=== PATIENT | female | born 1995 | race Hispanic/Latino ===

== ENCOUNTER 2023-06-30 11:33 | Inpatient (IN) | payer MEDICAID, OTHER ==
[2023-06-29 12:58] LABS: Hematocrit 37.1 % (34.9-44.5); Hemoglobin 12.2 g/dL (12.0-15.5); Platelet Count 195 10x3/uL (150-450)
[2023-06-29 13:24] LABS: Syphilis Antibody Nonreactive (Nonreactive); Syphilis Antibody Index 0.03 S/CO (<1.00 Non-Reactive)
[2023-06-29 13:25] LABS: HBSAg Index 0.14 S/CO (0-0.99); Hep B Surf Ag Non-Reactive S/CO (NonReactive)
[2023-06-30 11:55] VITALS: BMI 26.2
[2023-06-30] MEDS: Lactated Ringer's 1,000 ML IV SCH ×2 (12:15→16:00)
[2023-06-30] MEDS ORDERED: Carboprost 250 MCG/ML AMP IM PRN (12:17)
[2023-06-30] MEDS ORDERED: Diphenoxylate HCl/Atropine Tablet PO PRN (12:17)
[2023-06-30] MEDS ORDERED: Promethazine HCl 25 MG/ML VIAL IM PRN ×2 (12:17→15:51)
[2023-06-30] MEDS ORDERED: Misoprostol 200 MCG TAB PR PRN (12:17)
[2023-06-30] MEDS ORDERED: Bicitra 30 ML UDCUP PO PRN (12:17)
[2023-06-30] MEDS ORDERED: Ondansetron PF 4 MG/2 ML Vial IVP PRN ×2 (12:17→15:51)
[2023-06-30] MEDS ORDERED: Famotidine/PF 20 mg/2ml Vial SLOW IVP PRN (12:17)
[2023-06-30] MEDS ORDERED: hydrALAZINE 20 MG/ML VIAL SLOW IVP PRN ×2 (12:17→21:09)
[2023-06-30] MEDS ORDERED: Methylergonovine 0.2 MG/ML VIAL IM PRN (12:17)
[2023-06-30] MEDS ORDERED: Tranexamic Acid 1,000 MG/10 ML VIAL IVP PRN (12:17)
[2023-06-30] MEDS ORDERED: CEFAZOLIN 2 GM in Sodium Chloride 0.9% 100 ML IVPB SCH (12:30)
[2023-06-30] MEDS ORDERED: Oxytocin 30 units/NS 500 ML 500 ML IV SCH (12:30)
[2023-06-30] MEDS ORDERED: Oxytocin 10 UNITS/ML VIAL ONE ×2 (15:38→16:03)
[2023-06-30] MEDS ORDERED: PHENYLEPHRINE-NS 100 MCG/ML 10 ML SYRINGE ONE (15:38)
[2023-06-30] MEDS ORDERED: Ondansetron PF 4 MG/2 ML Vial ONE (15:38)
[2023-06-30] MEDS ORDERED: Morphine PF 10 MG/10 ML VIAL ONE (15:40)
[2023-06-30] MEDS ORDERED: Moisturizing Cream (Eucerin) 113 GM JAR TOP PRN (15:51)
[2023-06-30] MEDS ORDERED: Naloxone HCl 0.4 mg/ml Vial IVP PRN ×2 (15:51)
[2023-06-30] MEDS ORDERED: diphenhydrAMINE 50 MG/ML VIAL IVP PRN (15:51)
[2023-06-30] MEDS ORDERED: Promethazine HCl 25 MG SUPP PR PRN (15:51)
[2023-06-30] MEDS ORDERED: Fentanyl 50 MCG/1 ML VIAL SLOW IVP PRN (15:51)
[2023-06-30] MEDS ORDERED: Meperidine HCl/PF 25 MG/ML VIAL SLOW IVP PRN (15:51)
[2023-06-30] MEDS ORDERED: Naloxone HCl 0.4 mg/ml Vial IV PRN (15:51)
[2023-06-30] MEDS ORDERED: Ondansetron HCl/PF 4 MG/2 ML Vial IVP PRN (15:51)
[2023-06-30] MEDS ORDERED: Communication Order-Pharmacy FS SCH (16:00)
[2023-06-30] MEDS ORDERED: Ketorolac Tromethamine 30 MG/ML VIAL IVP SCH (16:00)
[2023-06-30] MEDS ORDERED: fentaNYL 50 mcg/mL 1 mL Vial ONE (16:02)
[2023-06-30] MEDS ORDERED: Tranexamic Acid 1,000 MG/10 ML VIAL ONE (16:53)
[2023-06-30] MEDS: Ketorolac Tromethamine 30 MG/ML VIAL IVP PRN (19:50)
[2023-06-30] MEDS ORDERED: Simethicone Chewable 80 MG TAB PO PRN (21:09)
[2023-06-30] MEDS ORDERED: diphenhydrAMINE 25 MG CAP PO PRN (21:09)
[2023-06-30] MEDS ORDERED: Acetaminophen 325 MG TAB PO PRN (21:09)
[2023-06-30] MEDS ORDERED: Boostrix 0.5 ML (Tdap) VIAL (>/=7 yrs of age) IM ONE (21:09)
[2023-06-30] MEDS ORDERED: Docusate 100 MG CAP PO SCH (22:00)
[2023-07-01] MEDS: Ketorolac Tromethamine 30 MG/ML VIAL IVP PRN ×3 (01:32→17:25)
[2023-07-01 04:18] LABS: Hematocrit 28.9 % (34.9-44.5); Hemoglobin 9.8 g/dL (12.0-15.5); Mean Corpuscular HGB CONC 33.9 g/dL (32.0-36.0); Mean Corpuscular Hemoglobin 31.5 pg (27.0-33.0); Mean Corpuscular Volume 92.9 fl (81.6-98.3); Mean Platelet Volume 10.6 fl (7.4-10.4); Platelet Count 147 10x3/uL (150-450); RBC Distribution Width 13.1 % (11.5-14.5); Red Blood Cell (RBC) Count 3.11 10x6/uL (3.90-5.03); White Blood Cell (WBC) Count 6.6 10x3/uL (3.5-10.5)
[2023-07-01] MEDS: Docusate 100 MG CAP PO SCH ×2 (08:24→22:37)
[2023-07-01] MEDS: Ferrous Sulfate 325 MG TAB PO SCH ×2 (08:24→17:25)
[2023-07-01 10:28] LABS: INR-International Normal Ratio 0.9; PTT 27.4 sec (22.0-33.0); Prothrombin Time 9.4 sec (9.5-12.1)
[2023-07-01] MEDS: HYDROcodone/Acetaminophen 5/325 mg Tablet PO PRN ×2 (14:07→22:37)
[2023-07-01] MEDS: Ibuprofen 800 MG TAB PO SCH (22:38)
[2023-07-02] MEDS: Ibuprofen 800 MG TAB PO SCH ×4 (06:49→21:35)
[2023-07-02] MEDS: Docusate 100 MG CAP PO SCH ×2 (08:06→21:34)
[2023-07-02] MEDS: Ferrous Sulfate 325 MG TAB PO SCH ×2 (08:07→18:25)
[2023-07-02] MEDS: HYDROcodone/Acetaminophen 5/325 mg Tablet PO PRN ×4 (08:07→22:35)
[2023-07-02 19:27] VITALS: TEMP 97.9
[2023-07-03] MEDS: Ibuprofen 800 MG TAB PO SCH ×2 (05:59→12:05)
[2023-07-03] MEDS: HYDROcodone/Acetaminophen 5/325 mg Tablet PO PRN (05:59)
[2023-07-03 07:49] VITALS: BP 107/62
[2023-07-03] MEDS: Docusate 100 MG CAP PO SCH (12:06)
[2023-07-03] MEDS: Ferrous Sulfate 325 MG TAB PO SCH (12:06)
== END 2023-07-03 13:00 | disposition home or self-care (01) | DRG 787 ==
LOC: CSHLD 11:33 → CSHPP 20:23
PROVIDERS: ADMIT Obstetrics & Gynecology; ATTEND Obstetrics & Gynecology
PROC: 10D00Z1 Extraction of Products of Conception, Low, Open Approach (ICD-10-PCS; principal; 2023-06-30)
PROC: 3E0P05Z Introduction of Adhesion Barrier into Female Reproductive, Open Approach (ICD-10-PCS; 2023-06-30)
PROC: 3E0334Z Introduction of Serum, Toxoid and Vaccine into Peripheral Vein, Percutaneous Approach (ICD-10-PCS; 2023-07-01)
DX: O34.211 Maternal care for low transverse scar from previous cesarean delivery (principal); D62 Acute posthemorrhagic anemia; N99.71 Accidental puncture and laceration of a genitourinary system organ or structure during a genitourinary system procedure; O36.0130 Maternal care for anti-D [Rh] antibodies, third trimester, not applicable or unspecified; Z3A.37 37 weeks gestation of pregnancy; Z37.0 Single live birth; N73.6 Female pelvic peritoneal adhesions (postinfective); Y83.8 Other surgical procedures as the cause of abnormal reaction of the patient, or of later complication, without mention of misadventure at the time of the procedure; O99.892 Other specified diseases and conditions complicating childbirth
CPT/HCPCS: 36415; 51702; 85014; 85018; 85027; 85049; 85384; 85461; 85610; 85730; 86780; 86850; 86870; 86900; 86901; 86922; 87340; 90384; 96372; J1200; J1885; J2274; J2405; J2590; J3010; J7120; S0028